=== PATIENT | female | born 1955 | race Caucasian/White ===

== ENCOUNTER 2016-10-25 13:02 | Inpatient (IN) | payer MEDICAID, OTHER, SELFPAY ==
[~2016-10-25] VITALS: Ht 149.9 cm; Wt 44.5 kg
[2016-10-25] MEDS ORDERED: LISI40TA PO (13:19)
[2016-10-25] MEDS ORDERED: CLOP75TA22 PO (13:20)
[2016-10-25] MEDS ORDERED: METO50TA82 PO (13:20)
[2016-10-25] MEDS ORDERED: ROSU20TA PO (13:20)
[2016-10-25] MEDS ORDERED: FURO20TA3 PO (13:20)
[2016-10-25] MEDS ORDERED: ASPI-515 PO (13:20)
[2016-10-25] MEDS ORDERED: PIPERACILLIN/TAZO/PMX 3.375GM 50 ML ONE ×2 (13:55→19:26)
[2016-10-25] MEDS ORDERED: ONDANSETRON 2MG/ML, 2ML ONE (13:55)
[2016-10-25] MEDS ORDERED: MORPHINE SULFATE 4 MG/ML, 1ML ONE (13:55)
[2016-10-25] MEDS ORDERED: SODIUM CHLORIDE FLUSH 10ML SYR IVF ONE (14:00)
[2016-10-25] MEDS ORDERED: MORPHINE SULFATE 4 MG/ML, 1ML IVPush PRN (14:00)
[2016-10-25] MEDS ORDERED: PIPERACILLIN/TAZO/PMX 3.375GM 50 ML IVPB ONE (14:00)
[2016-10-25] MEDS ORDERED: SODIUM CHLORIDE 0.9% 1,000ML IVBOLUS ONE (14:00)
[2016-10-25] MEDS ORDERED: ONDANSETRON 2MG/ML, 2ML IVPush ONE (14:00)
[2016-10-25 14:29] LABS: HEMOGLOBIN 9.3 g/dL (11.7-16.4)
[2016-10-25 14:40] LABS: ASPARTATE AMINO TRANSFERASE 11 U/L (15-37); BLOOD UREA NITROGEN 13 mg/dL (7-18)
[2016-10-25 14:47] LABS: IS PT STATUS REG ER OR PRE ER? YES
[2016-10-25 14:54] LABS: DIFF TOTAL CELLS COUNTED 200 CELL DIFF
[2016-10-25 14:55] LABS: VERIFY COUNTS? YES
[2016-10-25] MEDS ORDERED: OMNIPAQUE 350 MG/ML, 100ML BOTTLE ONE (15:43)
[2016-10-25] MEDS ORDERED: POTASSIUM CHLORIDE 20 MEQ TAB.ER.PRT PO ONE (16:00)
[2016-10-25] MEDS ORDERED: THIAMINE 100 MG in SODIUM CHLORIDE 0.9% 50 ML IV SCH (18:00)
[2016-10-25 18:11] LABS: BLOOD UREA NITROGEN 13 mg/dL (7-18)
[2016-10-25] MEDS ORDERED: MAGNESIUM SULFATE PMX 2GM/50ML 50 ML IV ONE (18:30)
[2016-10-25] MEDS: PIPERACILLIN/TAZO/PMX 3.375GM 50 ML IV SCH (20:00)
[2016-10-25 20:54] VITALS: BP 131/78
[2016-10-25] MEDS: MORPHINE SULFATE 4 MG/ML, 1ML IVPush PRN (22:05)
[2016-10-25] MEDS: SODIUM CHLORIDE 0.9% 1,000 ML IV SCH (23:18)
[2016-10-25] MEDS: NYSTATIN 500,000 UNITS/5 ML UDC PO SCH (23:19)
[2016-10-26] VITALS (13 sets, daily range): BP systolic 90–131; BP diastolic 52–78
[2016-10-26] MEDS: MORPHINE SULFATE 4 MG/ML, 1ML IVPush PRN ×8 (01:21→23:36)
[2016-10-26] MEDS: PIPERACILLIN/TAZO/PMX 3.375GM 50 ML IV SCH ×3 (06:14→20:32)
[2016-10-26] MEDS: NYSTATIN 500,000 UNITS/5 ML UDC PO SCH ×4 (06:14→20:32)
[2016-10-26 06:42] LABS: BLOOD UREA NITROGEN 8 mg/dL (7-18)
[2016-10-26 06:44] LABS: HEMOGLOBIN 6.9 g/dL (11.7-16.4)
[2016-10-26 06:45] LABS: ASPARTATE AMINO TRANSFERASE 11 U/L (15-37)
[2016-10-26] MEDS: SODIUM CHLORIDE 0.9% 1,000 ML IV SCH (09:01)
[2016-10-26] MEDS ORDERED: morphine SULFATE 10 MG/ML, 1ML ONE ×2 (09:47→13:47)
[2016-10-26] MEDS: PANTOPRAZOLE 40 MG IV IVP SCH (10:00)
[2016-10-27] VITALS (7 sets, daily range): BP systolic 83–149; BP diastolic 54–81
[2016-10-27] MEDS: PIPERACILLIN/TAZO/PMX 3.375GM 50 ML IV SCH ×4 (02:47→20:16)
[2016-10-27] MEDS: SODIUM CHLORIDE 0.9% 1,000 ML IV SCH ×2 (02:47→17:07)
[2016-10-27] MEDS: MORPHINE SULFATE 4 MG/ML, 1ML IVPush PRN ×5 (04:43→20:16)
[2016-10-27 05:46] LABS: BLOOD UREA NITROGEN 5 mg/dL (7-18)
[2016-10-27] MEDS: NYSTATIN 500,000 UNITS/5 ML UDC PO SCH ×4 (06:36→20:16)
[2016-10-27 07:01] LABS: HEMOGLOBIN 9.3 g/dL (11.7-16.4)
[2016-10-27] MEDS: IRON SUCROSE COMPLEX 100MG/5ML IV SCH (08:18)
[2016-10-27] MEDS: PANTOPRAZOLE 40 MG IV IVP SCH (08:18)
[2016-10-27] MEDS: FOLIC ACID 1 MG TABLET PO SCH (08:18)
[2016-10-27] MEDS: THIAMINE 100MG TABLET PO SCH (08:18)
[2016-10-27] MEDS ORDERED: SODIUM CHLORIDE 0.9%, 500ML IVBOLUS ONE (09:00)
[2016-10-27] MEDS: ENOXAPARIN 40 MG/0.4 ML SQ SCH (13:03)
[2016-10-27] MEDS: HYDROCORTISONE 100 MG INJ. IVPush SCH ×2 (13:42→20:16)
[2016-10-28 01:33] VITALS: BP 119/70
[2016-10-28] MEDS: HYDROCORTISONE 100 MG INJ. IVPush SCH ×4 (03:36→21:36)
[2016-10-28] MEDS: PIPERACILLIN/TAZO/PMX 3.375GM 50 ML IV SCH ×4 (03:37→20:02)
[2016-10-28] MEDS: MORPHINE SULFATE 4 MG/ML, 1ML IVPush PRN ×8 (03:37→23:56)
[2016-10-28] MEDS: NYSTATIN 500,000 UNITS/5 ML UDC PO SCH ×4 (06:41→21:36)
[2016-10-28 06:44] VITALS: BP 144/74
[2016-10-28] MEDS: IRON SUCROSE COMPLEX 100MG/5ML IV SCH (09:14)
[2016-10-28] MEDS: PANTOPRAZOLE 40 MG IV IVP SCH (09:14)
[2016-10-28] MEDS: SODIUM CHLORIDE 0.9% 1,000 ML IV SCH (09:15)
[2016-10-28] MEDS: FOLIC ACID 1 MG TABLET PO SCH (09:15)
[2016-10-28] MEDS: THIAMINE 100MG TABLET PO SCH (09:15)
[2016-10-28] MEDS: ENOXAPARIN 40 MG/0.4 ML SQ SCH (09:15)
[2016-10-28 12:31] VITALS: BP 138/79
[2016-10-28] MEDS: OXYcodone IR 5MG TABLET PO PRN ×3 (13:04→21:40)
[2016-10-28 19:20] VITALS: BP 122/70
[2016-10-29] MEDS: OXYcodone IR 5MG TABLET PO PRN ×6 (02:10→21:36)
[2016-10-29 02:17] VITALS: BP 168/84
[2016-10-29] MEDS: PIPERACILLIN/TAZO/PMX 3.375GM 50 ML IV SCH ×4 (03:15→20:19)
[2016-10-29] MEDS: MORPHINE SULFATE 4 MG/ML, 1ML IVPush PRN ×4 (03:15→13:51)
[2016-10-29] MEDS: NYSTATIN 500,000 UNITS/5 ML UDC PO SCH ×4 (06:00→20:19)
[2016-10-29 06:16] LABS: HEMOGLOBIN 10.2 g/dL (11.7-16.4)
[2016-10-29 06:24] LABS: BLOOD UREA NITROGEN 9 mg/dL (7-18)
[2016-10-29 07:02] VITALS: BP 155/82
[2016-10-29] MEDS: HYDROCORTISONE 100 MG INJ. IVPush SCH ×3 (08:44→20:19)
[2016-10-29] MEDS: IRON SUCROSE COMPLEX 100MG/5ML IV SCH (08:44)
[2016-10-29] MEDS: FOLIC ACID 1 MG TABLET PO SCH (08:44)
[2016-10-29] MEDS: THIAMINE 100MG TABLET PO SCH (08:44)
[2016-10-29] MEDS: ENOXAPARIN 40 MG/0.4 ML SQ SCH (10:47)
[2016-10-29 12:57] VITALS: BP 153/76
[2016-10-29] MEDS ORDERED: HYDROcodone/APAP 5/325 TABLET PO PRN (15:30)
[2016-10-29] MEDS: POTASSIUM CHLORIDE 20 MEQ TAB.ER.PRT PO SCH (17:00)
[2016-10-29] MEDS ORDERED: OXYcodone/APAP 5/325MG TABLET PO PRN (17:00)
[2016-10-29] MEDS: OxyconTIN ER 10 MG TAB.ER PO SCH (17:00)
[2016-10-29 20:24] VITALS: BP 169/77
[2016-10-30] MEDS: PIPERACILLIN/TAZO/PMX 3.375GM 50 ML IV SCH ×4 (01:54→23:55)
[2016-10-30] MEDS: OXYcodone IR 5MG TABLET PO PRN ×5 (02:03→23:50)
[2016-10-30 02:46] VITALS: BP 162/80
[2016-10-30] MEDS: OxyconTIN ER 10 MG TAB.ER PO SCH ×3 (03:33→18:34)
[2016-10-30] MEDS: NYSTATIN 500,000 UNITS/5 ML UDC PO SCH ×4 (05:40→23:49)
[2016-10-30 06:30] LABS: HEMOGLOBIN 10.6 g/dL (11.7-16.4)
[2016-10-30] MEDS: LORazepam 2 MG/ML, 1ML IVPush PRN ×2 (06:31→20:37)
[2016-10-30 06:39] LABS: BLOOD UREA NITROGEN 9 mg/dL (7-18)
[2016-10-30] MEDS ORDERED: GADOBUTROL 7.5 MMOL/7.5 ML PFS ONE (07:48)
[2016-10-30 07:59] VITALS: BP 162/82
[2016-10-30] MEDS: POTASSIUM CHLORIDE 20 MEQ TAB.ER.PRT PO SCH ×4 (08:00→23:49)
[2016-10-30] MEDS: THIAMINE 100MG TABLET PO SCH (09:00)
[2016-10-30] MEDS: FOLIC ACID 1 MG TABLET PO SCH (09:00)
[2016-10-30] MEDS: HYDROCORTISONE 100 MG INJ. IVPush SCH (09:05)
[2016-10-30] MEDS: ENOXAPARIN 40 MG/0.4 ML SQ SCH (09:06)
[2016-10-30] MEDS ORDERED: MAGNESIUM SULFATE PMX 2GM/50ML 50 ML IV ONE (09:30)
[2016-10-30] MEDS ORDERED: POTASSIUM CHLORIDE 40 MEQ in SODIUM CHLORIDE 0.9% 500 ML IV ONE (09:30)
[2016-10-30 12:44] VITALS: BP 163/74
[2016-10-30 15:12] LABS: BLOOD UREA NITROGEN 7 mg/dL (7-18)
[2016-10-30] MEDS ORDERED: LIDOCAINE 1%, 2ML ONE (15:24)
[2016-10-30 19:05] LABS: BLOOD UREA NITROGEN 7 mg/dL (7-18)
[2016-10-30 19:47] VITALS: BP 161/78
[2016-10-30 19:50] VITALS: BP_SYST 113; BP_SYST 137; BP_DIAS 54; BP_DIAS 63
[2016-10-30] MEDS ORDERED: NS + 40MEQ KCL 1,000 ML IV SCH (20:00)
[2016-10-30] MEDS: POTASSIUM CHLORIDE 40 MEQ in SODIUM CHLORIDE 0.9% 1,000 ML IV SCH (20:12)
[2016-10-31] VITALS (9 sets, daily range): BP systolic 99–129; BP diastolic 58–78
[2016-10-31] MEDS ORDERED: POTASSIUM CHLORIDE 40 MEQ in SODIUM CHLORIDE 0.9% 500 ML IV ONE (01:00)
[2016-10-31 05:21] LABS: HEMOGLOBIN 11.1 g/dL (11.7-16.4)
[2016-10-31 05:27] LABS: BLOOD UREA NITROGEN 6 mg/dL (7-18)
[2016-10-31] MEDS: OxyconTIN ER 10 MG TAB.ER PO SCH ×2 (05:30→12:14)
[2016-10-31 05:31] LABS: ASPARTATE AMINO TRANSFERASE 15 U/L (15-37)
[2016-10-31] MEDS: PIPERACILLIN/TAZO/PMX 3.375GM 50 ML IV SCH ×3 (05:43→17:41)
[2016-10-31] MEDS: NYSTATIN 500,000 UNITS/5 ML UDC PO SCH ×4 (06:00→20:44)
[2016-10-31] MEDS ORDERED: BUPIVACAINE/PF-EPI 0.25% 1:200K ONE (06:17)
[2016-10-31] MEDS ORDERED: FENTANYL PF 100 MCG/2ML ONE ×2 (06:47→07:27)
[2016-10-31] MEDS ORDERED: PROPOFOL 10 MG/ML, 20ML ONE (07:16)
[2016-10-31] MEDS ORDERED: PHENYLEPHRINE 10 MG/ML ONE (07:16)
[2016-10-31] MEDS ORDERED: MEPERIDINE/PF 25MG/0.5ML IVPush PRN (08:00)
[2016-10-31] MEDS ORDERED: MIDAZOLAM 1 MG/ML, 2ML IV PRN (08:00)
[2016-10-31] MEDS ORDERED: hydrALAzine 20 MG/ML, 1ML IV PRN (08:00)
[2016-10-31] MEDS ORDERED: ACETAMINOPHEN 325 MG TABLET PO PRN (08:00)
[2016-10-31] MEDS ORDERED: FENTANYL PF 100 MCG/2ML IV PRN (08:00)
[2016-10-31] MEDS ORDERED: HYDROmorphone 1 MG/ML, 1ML IV PRN (08:00)
[2016-10-31] MEDS ORDERED: ALBUTEROL/IPRATROPIUM 2.5MG/0.5MG, 3 ML NPPB PRN (08:00)
[2016-10-31] MEDS ORDERED: PROMETHAZINE 25 MG/ML, 1ML IV PRN (08:00)
[2016-10-31] MEDS ORDERED: OXYcodone 5 MG/5 ML ORAL.SOL UDC PO PRN (08:00)
[2016-10-31] MEDS ORDERED: LABETALOL 5MG/ML, 20ML IV PRN (08:00)
[2016-10-31] MEDS ORDERED: METOCLOPRAMIDE 5 MG/ML, 2ML IV PRN (08:00)
[2016-10-31] MEDS ORDERED: ONDANSETRON 2MG/ML, 2ML IVPush PRN (08:00)
[2016-10-31] MEDS: FOLIC ACID 1 MG TABLET PO SCH (09:00)
[2016-10-31] MEDS: THIAMINE 100MG TABLET PO SCH (09:00)
[2016-10-31] MEDS ORDERED: HYDROCORTISONE 100 MG INJ. IVPush SCH (09:00)
[2016-10-31] MEDS ORDERED: EPHEDRINE 50 MG/ML, 1ML ONE (09:06)
[2016-10-31] MEDS: ENOXAPARIN 40 MG/0.4 ML SQ SCH (09:30)
[2016-10-31] MEDS ORDERED: EPHEDRINE 50 MG/ML, 1ML IVPush ONE (09:30)
[2016-10-31] MEDS ORDERED: OXYcodone/APAP 5/325MG TABLET PO PRN (11:30)
[2016-10-31] MEDS: POTASSIUM CHLORIDE 40 MEQ in SODIUM CHLORIDE 0.9% 1,000 ML IV SCH ×2 (12:14→20:44)
[2016-10-31 14:05] LABS: OCCBLD OBC PASS
[2016-10-31] MEDS ORDERED: POTASSIUM PHOSPHATE 22 MEQ in SODIUM CHLORIDE 0.9% 500 ML IV ONE (19:00)
[2016-10-31] MEDS: OXYcodone IR 5MG TABLET PO PRN (20:46)
[2016-11-01] MEDS: OXYcodone IR 5MG TABLET PO PRN ×3 (01:08→17:01)
[2016-11-01] MEDS ORDERED: OXYcodone/APAP 5/325MG TABLET PO PRN (01:30)
[2016-11-01] MEDS: OxyconTIN ER 20 MG TAB.ER PO SCH ×2 (03:47→14:24)
[2016-11-01 04:09] VITALS: BP 164/96
[2016-11-01 04:23] LABS: HEMOGLOBIN 9.7 g/dL (11.7-16.4)
[2016-11-01 04:33] LABS: BLOOD UREA NITROGEN 5 mg/dL (7-18)
[2016-11-01] MEDS: NYSTATIN 500,000 UNITS/5 ML UDC PO SCH ×3 (06:18→17:01)
[2016-11-01 07:18] VITALS: BP 139/73
[2016-11-01] MEDS: POTASSIUM CHLORIDE 20 MEQ TAB.ER.PRT PO SCH ×2 (10:20→16:59)
[2016-11-01] MEDS: FOLIC ACID 1 MG TABLET PO SCH (10:20)
[2016-11-01] MEDS: ENOXAPARIN 40 MG/0.4 ML SQ SCH (10:20)
[2016-11-01] MEDS: THIAMINE 100MG TABLET PO SCH (10:20)
[2016-11-01] MEDS ORDERED: OXYC20TA42 PO (16:42)
[2016-11-01] MEDS ORDERED: FOLI-17 PO (16:42)
[2016-11-01] MEDS ORDERED: POTA20TA6 PO ×2 (16:42→17:24)
[2016-11-01] MEDS ORDERED: NYST1000 PO (16:42)
[2016-11-01] MEDS ORDERED: THIA100T6 PO (16:42)
[2016-11-01 16:48] VITALS: BP 125/74
== END 2016-11-01 18:23 | disposition home health service (06) | DRG 871 ==
LOC: ED 15:41 → EDIP 17:48 → 5SO 20:45 → 4EST 10-28 16:35 → 3NW 10-30 18:13
PROVIDERS: ATTEND Internal Medicine
PROC: 0JB80ZX Excision of Abdomen Subcutaneous Tissue and Fascia, Open Approach, Diagnostic (ICD-10-PCS; principal; 2016-10-25)
PROC: 0T9B70Z Drainage of Bladder with Drainage Device, Via Natural or Artificial Opening (ICD-10-PCS; 2016-10-25)
PROC: 30233N1 Transfusion of Nonautologous Red Blood Cells into Peripheral Vein, Percutaneous Approach (ICD-10-PCS; 2016-10-26)
DX: A41.9 Sepsis, unspecified organism (principal); E43 Unspecified severe protein-calorie malnutrition; K55.039 Acute (reversible) ischemia of large intestine, extent unspecified; A09 Infectious gastroenteritis and colitis, unspecified; E87.1 Hypo-osmolality and hyponatremia; C34.12 Malignant neoplasm of upper lobe, left bronchus or lung; N39.0 Urinary tract infection, site not specified; C79.51 Secondary malignant neoplasm of bone; C34.11 Malignant neoplasm of upper lobe, right bronchus or lung; E27.40 Unspecified adrenocortical insufficiency; Z82.3 Family history of stroke; Z80.1 Family history of malignant neoplasm of trachea, bronchus and lung; F17.200 Nicotine dependence, unspecified, uncomplicated; I11.9 Hypertensive heart disease without heart failure; R55 Syncope and collapse; I95.9 Hypotension, unspecified; K59.00 Constipation, unspecified; B37.9 Candidiasis, unspecified; D75.89 Other specified diseases of blood and blood-forming organs; D64.9 Anemia, unspecified; E86.0 Dehydration; E87.6 Hypokalemia; E78.5 Hyperlipidemia, unspecified; Z95.5 Presence of coronary angioplasty implant and graft; I25.2 Old myocardial infarction; I25.10 Atherosclerotic heart disease of native coronary artery without angina pectoris; R73.9 Hyperglycemia, unspecified; Z68.21 Body mass index [BMI] 21.0-21.9, adult; D50.0 Iron deficiency anemia secondary to blood loss (chronic); E78.00 Pure hypercholesterolemia, unspecified; I70.8 Atherosclerosis of other arteries; I73.9 Peripheral vascular disease, unspecified; Z79.82 Long term (current) use of aspirin; E83.42 Hypomagnesemia; E83.39 Other disorders of phosphorus metabolism; G89.3 Neoplasm related pain (acute) (chronic); M54.9 Dorsalgia, unspecified; E83.41 Hypermagnesemia; I65.29 Occlusion and stenosis of unspecified carotid artery; C44.529 Squamous cell carcinoma of skin of other part of trunk
CPT/HCPCS: 36415; 70553; 71010; 72158; 74177; 77290; 77295; 77300; 77334; 77387; 77412; 80048; 80053; 81001; 82140; 82272; 82533; 82728; 83540; 83550; 83605; 83735; 84100; 84132; 84145; 84443; 84466; 84484; 85025; 85610; 85730; 86850; 86870; 86900; 86902; 86922; 86923; 87040; 87046; 87086; 87899; 88304; 93005; 93880; 96365; 96375; A9585; J1650; J1756; J2405; J2543; J2704; J3010; J3411; J3480; Q9967; C9113; J1720; J2060; J2370; J3475; J7030; J7040; P9016

== ENCOUNTER → 2016-12-05 | Outpatient (CLI) | payer MEDICAID ==
[~2016-12-05] MED LIST: ASPI-515 PO; CLOP75TA22 PO; FOLI-17 PO; FURO20TA3 PO; LISI40TA PO; METO50TA82 PO; NYST1000 PO; OXYC20TA42 PO; POTA20TA6 PO; ROSU20TA PO; THIA100T6 PO
== END | disposition home or self-care (01) ==
LOC: RAD 16:15
PROVIDERS: ATTEND Internal Medicine Hematology & Oncology
DX: C34.12 Malignant neoplasm of upper lobe, left bronchus or lung (principal); C79.51 Secondary malignant neoplasm of bone
CPT/HCPCS: 71010

== ENCOUNTER → 2016-12-24 | Outpatient (CLI) | payer MEDICAID | END | disposition home or self-care (01) | LOC: ROC 14:58 | PROVIDERS: ATTEND Radiology Radiation Oncology | DX: C34.12 Malignant neoplasm of upper lobe, left bronchus or lung (principal) | CPT/HCPCS: 99213; G0463 ==